=== PATIENT | male | born 1955 | race Two or more races ===

== ENCOUNTER 2019-11-19 08:16 | Emergency (ER) | payer MEDICAID ==
[~2019-11-19] VITALS: Ht 162.6 cm; Wt 59.4 kg
[2019-11-19] MEDS ORDERED: ALBUTEROL FS 2.5 MG/3 ML VIAL.NEB CONTNEB ONE (08:30)
--- NOTE | 2019-11-19 08:30 | NUR ---
JANNETTE 89 FROM [facility]: SOB THIS AM HX COPD, BREATHING TX GIVEN IN FIELD, ON 02 @ 3LPM VIA NC, CONNECTED TO THE MONITOR AND PULSE OX. KEPT COMFORTABLE, WILL CONTINUE TO MONITOR ACCORDINGLY.
[2019-11-19] MEDS ORDERED: DOCU250C14 PO (08:45)
[2019-11-19] MEDS ORDERED: LEVO500T75 PO (08:45)
[2019-11-19] MEDS ORDERED: METO25TA20 PO (08:45)
[2019-11-19] MEDS ORDERED: CLON0.5T PO (08:45)
[2019-11-19] MEDS ORDERED: INSU100V11 SQ (08:45)
[2019-11-19] MEDS ORDERED: PANT40TA2 PO (08:45)
[2019-11-19] MEDS ORDERED: AMLO5TAB9 PO (08:45)
[2019-11-19] MEDS ORDERED: LORA-259 PO (08:45)
[2019-11-19] MEDS ORDERED: HYDR-4384 PO (08:45)
[2019-11-19] MEDS ORDERED: ALBUTEROL FS 2.5 MG/3 ML VIAL.NEB ONE (08:45)
[2019-11-19] MEDS ORDERED: IPRA0.2S9 IH (08:45)
[2019-11-19] MEDS ORDERED: GLUC1KIT IM (08:45)
[2019-11-19] MEDS ORDERED: INSU100I19 SQ (08:45)
[2019-11-19] MEDS ORDERED: MAGN400O6 PO (08:45)
[2019-11-19] MEDS ORDERED: ACET-868 PO (08:45)
[2019-11-19] MEDS ORDERED: ALBU6.7H9 IH (08:45)
[2019-11-19] MEDS ORDERED: BISA10SU11 RC (08:45)
[2019-11-19] MEDS ORDERED: METH10TA2 PO (08:45)
[2019-11-19 09:04] LABS: BASOPHILS # (AUTO) 0.1 /CMM (0.0-0.2); BASOPHILS % (AUTO) 0.7 % (0.0-2.0); EOSINOPHILS % (AUTO) 15.2 % (0.0-6.0); HEMATOCRIT 34 % (39-51); HEMOGLOBIN 10.5 g/dL (13.5-17.5); LYMPHOCYTES # (AUTO) 1.5 /CMM (0.8-4.8); LYMPHOCYTES % (AUTO) 20.1 % (20.0-44.0); MEAN CORPUSCULAR HGB CONC 31 g/dl (31.0-36.0); MEAN CORPUSCULAR VOLUME 75 fL (80-96); MONOCYTES # (AUTO) 0.7 /CMM (0.1-1.30); MONOCYTES % (AUTO) 9.7 % (2.0-12.0); NEUTROPHILS # (AUTO) 4.1 /CMM (1.8-8.9); NEUTROPHILS % (AUTO) 54.3 % (43.0-81.0); PLATELET COUNT (AUTO) 249 /CMM (150-450); RED BLOOD CELL COUNT(AUTO) 4.57 MIL/uL (4.5-6.0); WHITE BLOOD COUNT (AUTO) 7.6 K/uL (4.3-11.0)
[2019-11-19 09:18] LABS: CALCIUM, SERUM 8.4 mg/dL (8.5-10.1); CREATININE 0.7 mg/dL (0.6-1.3); POTASSIUM 4.2 mmol/L (3.5-5.1)
[2019-11-19 09:23] LABS: APPEARANCE,URINE Clear (CLEAR); BILIRUBIN,URINE Negative (NEGATIVE); BLOOD, URINE Negative Ery/uL (NEGATIVE); COLOR,URINE Dark (YELLOW); KETONES,URINE Negative (NEGATIVE); LEUKOCYTE ESTERASE ,URINE Negative (NEGATIVE); NITRITE, URINE Negative (NEGATIVE); PH,URINE 6.5 (5.0-8.0); PROTEIN,URINE Negative (NEGATIVE); UGLUCOSE Negative (NEGATIVE)
--- NOTE | 2019-11-19 09:24 | NUR ---
urine collected and sent to lab.
[2019-11-19 09:29] LABS: ALBUMIN 2.3 g/dL (3.4-5.0); BILIRUBIN,DIRECT 0.4 mg/dL (0.0-0.2); TOTAL PROTEIN, SERUM 7.5 g/dL (6.4-8.2)
[2019-11-19] MEDS ORDERED: AZITHROMYCIN 500 MG in IV D5W 250 ML IV ONE (09:30)
[2019-11-19] MEDS ORDERED: CEFTRIAXONE 1GM BAG (ER ONLY) 1 GM/50 ML PIGGYBACK IV ONE (09:30)
[2019-11-19] MEDS ORDERED: CEFTRIAXONE 1GM BAG (ER ONLY) 50 ML IV ONE (09:31)
[2019-11-19 09:41] LABS: BACTERIA,URINE None seen /HPF (None Seen); RBC,URINE 0-2 /HPF (0-2); SQUAMOUS EPITHELIAL CELL,UR Few /HPF (None Seen); WBC,URINE 0-2 /HPF (0-3)
--- NOTE | 2019-11-19 10:24 | NUR ---
received a call from Zeinab palacios and said patient will be transfer to [facility], will call back for more updates and ETA.
--- NOTE | 2019-11-19 12:42 | NUR ---
called Zeinab REYNA in regards with patient status and said she will call back if they have bed available. Will call back for update.
--- NOTE | 2019-11-19 13:05 | NUR ---
AXEL ELLINGTON [phone]. CHANDANA CALLED SAYING THEY ARE STILL WAITING FOR A BED ASSIGNMENT. NO ETA. WILL CALL BACK WITH FURTER INFORMATION.
--- NOTE | 2019-11-19 13:17 | NUR ---
received a call from Zeinab REYNA [facility], patient is going to room 208-A sheri RN [phone] for report.
--- NOTE | 2019-11-19 13:35 | NUR ---
called Kristi ARSHAD from [facility] for report and was on hold for 15 mins.
--- NOTE | 2019-11-19 13:38 | NUR ---
AXEL ELLINGTON CALLED FROM [facility] TO GIVE TRANSPORT ETA. ITS GOING TO BE WITH [facility]. ETA 1500.
[2019-11-19 16:19] VITALS: BP 128/70
--- NOTE | 2019-11-19 16:19 | NUR ---
report given to Caryn freedman to [facility].
--- NOTE | 2019-11-19 16:20 | NUR ---
patient left via gurney accompanied by EMT in no distress.
== END 2019-11-19 16:20 | disposition short-term general hospital (02) ==
LOC: ER 08:18
DX: J44.1 Chronic obstructive pulmonary disease with (acute) exacerbation (principal); J18.9 Pneumonia, unspecified organism; F19.10 Other psychoactive substance abuse, uncomplicated; I10 Essential (primary) hypertension; E11.9 Type 2 diabetes mellitus without complications; Z79.899 Other long term (current) drug therapy; Z79.4 Long term (current) use of insulin
CPT/HCPCS: 36415; 71045; 80048; 80076; 81001; 83605; 84145; 84484; 85025; 85730; 87040 ×2; 87086; 87804 ×2; 93005; 94640; 96365; 96368; 99285; J0456; J0696 ×2; J7060; 81000-TC